=== PATIENT | female | born 1950 | race Caucasian/White ===

== ENCOUNTER → 2018-04-09 | Outpatient (CLI) | payer MEDICARE, OTHER ==
[~2018-04-09] MED LIST: AMOX-559 PO; ATOR10TA24 PO; CALC-547 PO; CALC-852 PO; CALC625T57 PO; DICL1TAB85 PO; ESOM20CA31 PO; FISH OIL1 CAP PO; GLUC-198 PO; HYDR-2966 PO; HYOS-50 SL; LOSA-165 PO; OMEP-218 PO; RAMI10CA52 PO; VEN75 PO; VENL75CA58 PO
--- NOTE | 2018-04-10 10:42 | RADIOLOGY IMAGING REPORT ---
[place] [facility] [place] NAME: DUNIA TAYLOR : [id number] MR: [id number] V: [id number] EXAM DATE: [id number] ORDERING PHYSICIAN: ISELA HEART TECHNOLOGIST: Marley Murillo PROCEDURE:BILATERAL DIGITAL SCREENING MAMMOGRAM WITH CAD ASSISTED INTERPRETATION & 3D TOMOSYNTHESIS COMPARISON:Prior mammograms 10/04/16, 09/30/15, 08/24/14, 08/11/14, 05/06/13, 03/28/12. INDICATIONS:screening FINDINGS: Moderately dense heterogeneous fibroglandular tissue is seen throughout the breasts. The parenchymal pattern has remained stable allowing for difference in mammographic technique & patient positioning. There is no evidence of malignant appearing mass, malignant appearing calcifications or other secondary sign of malignancy in either breast. DIAGNOSTIC CATEGORY 1--NEGATIVE. RECOMMENDATIONS: ROUTINE MAMMOGRAM AND CLINICAL EVALUATION. IMPRESSION: BIRADS 1: Negative No significant abnormality is seen. Dictated by: Jovana Dobson M.D. on 04/09/2018 at 14:29 Transcribed by: SREE on 04/09/2018 at 15:03 Approved by: Jovana Dobson M.D. on 04/10/2018 at 10:41 [facility]
== END ==
LOC: MAMO 00:50
PROVIDERS: ATTEND Nurse Practitioner Family
DX: Z12.31 Encounter for screening mammogram for malignant neoplasm of breast (principal)
CPT/HCPCS: 77063; 77067